=== PATIENT | female | born 1995 | race Caucasian/White ===

== ENCOUNTER → 2017-08-08 | Outpatient (CLI) | payer BC ==
[~2017-08-08] MED LIST: PRENTAB26 PO
== END | disposition home or self-care (01) ==
LOC: C.LABMFLN 14:44
PROVIDERS: ATTEND Obstetrics & Gynecology
DX: Z32.01 Encounter for pregnancy test, result positive (principal)

== ENCOUNTER → 2017-09-19 | Outpatient (CLI) | payer BC ==
[~2017-09-19] MED LIST changes: +METR500T PO
[2017-09-19 15:58] LABS: URINE APPEARANCE TURBID (CLEAR); URINE BILIRUBIN NEG (NEG); URINE COLOR YELLOW; URINE EPITHELIAL CELL AUTO >30 /lpf (0-5); URINE NITRITE NEG (NEG); UROBILINOGEN NEG (NEG)
[2017-09-19 16:10] LABS: MANUAL MICROSCOPIC REQUIRED? NO; REVIEW REQ? YES
== END | disposition home or self-care (01) ==
LOC: C.LABSPEC 15:32
PROVIDERS: ATTEND Obstetrics & Gynecology
DX: Z34.91 Encounter for supervision of normal pregnancy, unspecified, first trimester (principal)

== ENCOUNTER 2019-06-02 02:22 | Inpatient (IN) ==
[2019-06-02] MEDS ORDERED: OXYTOCIN 30 UNITS/500 ML BAG IV PRN ×3 (02:58→15:25)
[2019-06-02 03:16] LABS: Hematocrit (blood only) 30.4 % (37-47); Mean Corpuscular Volume 85.2 fL (80-100); Platelet Count 273 K/uL (130-400); RDW Coefficient of Variation 13.3 % (11.5-14.5); Red Blood Count 3.57 M/uL (4.2-5.4)
[2019-06-02 03:35] LABS: Mean Corpuscular Hgb Conc 32.9 g/dL (32-36)
[2019-06-02] MEDS ORDERED: BUTORPHANOL TARTRATE 2 MG/ML VIAL IV PRN (04:30)
--- NOTE | 2019-06-02 06:42 | History & Physical Report ---
Date of Service June 02, 2019 Term multiple presents in labor with rupture of membranes she initially was shikha and progressed in 3-4 to 4 to 5 cm however she is now stopped shikha and I recommend Pitocin estimated weight 70 pounds Assessment & Plan (1) PROM (premature rupture of membranes): Admission Pitocin monitor closely History of Present Illness Primary Care Provider: Raul Traylor Allergies Allergy/AdvReac Type Severity Reaction Status Date / Time No Known Allergies Allergy Unverified 10/03/17 12:20 Home Medications Home Medications Medication Instructions Recorded Confirmed Type vit no.[id number] 1 tab PO DAILY 05/30/19 06/02/19 History [ Vitamin] Patient History Medical History (spontaneous vaginal delivery) 2016 Surgical History History of appendectomy Occured at 6 years old. Social History Preferred Language: Belgian Communication Ability: Effective Beliefs That Will Affect Care: None marital status: Single Current Living Situation: Family Current Living Situation Comment: Lives with FOB and son Other Information That Helps Us Care for You: No Feels Safe at Home: Yes Safety Concerns: Feels Safe At This Time Smoking Status: Never smoker Second Hand Exposure: No Hx Alcohol Use: No Hx Substance Use: No Physical Exam Constitutional: WD/WN, vitals as above Respiratory: normal respiratory effort, lungs clear to auscultation Cardiovascular: RRR, no murmur, no edema Genitourinary: Manual OB Exam: + cervical dilation 4 cm and + cervical effacement 80% Results & Data Vital Signs (Past 12 Hours) Vital Signs Temp Pulse Resp BP 06/02/19 05:59 37.1 C 06/02/19 04:16 79 113/56 L 06/02/19 04:15 36.8 C 06/02/19 02:34 37.1 C 75 20 116/67 06/02/19 02:33 75 116/67
[2019-06-02] MEDS: LACTATED RINGER'S 1,000 ML IV PRN ×3 (07:02→13:03)
[2019-06-02] MEDS ORDERED: BUPIVACAINE 0.25% 30 ML VIAL ONE (11:49)
[2019-06-02] MEDS ORDERED: fentaNYL 2MCG/ML ROPIV 1.25MG/ML 100 ML BAG EPI ONE (11:50)
[2019-06-02] MEDS ORDERED: ePHEDrine sulfate 50 MG/ML AMP ONE (11:50)
[2019-06-02] MEDS ORDERED: fentaNYL citrate 100 MCG/2 ML VIAL ONE (11:50)
--- NOTE | 2019-06-02 13:05 | Anesthesiology Consultation ---
Date of Service June 02, 2019 Assessment & Plan Chart Review Chart Review: Acceptable Risk for Labor Epidural Consults Requested none History Height/Weight Height: 5 ft 4 in Weight: 50.349 kg Allergies Allergy/AdvReac Type Severity Reaction Status Date / Time No Known Allergies Allergy Unverified 10/03/17 12:20 Medications Home Medications Medication Instructions Recorded Confirmed Last Taken vit no.[id number] 1 tab PO DAILY 05/30/19 06/02/19 06/01/19 [ Vitamin] Active Medications Generic Name Dose Route Start Last Admin Trade Name Freq PRN Reason Stop Dose Admin Lactated Ringer's 1,000 mls @ 125 mls/hr 06/02/19 02:58 06/02/19 13:04 Lr IV 06/04/19 02:57 125 mls/hr .Q8H PRN Infusion L&D Protocol Protocol Oxytocin 30 units in 500 mls @ 0 mls/hr 06/02/19 06:39 06/02/19 12:12 Pitocin IV 06/04/19 06:38 0 units/hr .Q0M PRN 0 mls/hr Labor Induction/Augmentation Titration Protocol 0 UNITS/HR Past Medical History Medical History (spontaneous vaginal delivery) 2015 Past Surgical History Surgical History History of appendectomy Occured at 6 years old. Social History Smoking Status: Never smoker Hx Alcohol Use: No Hx Substance Use: No substance use type: does not use Physical Exam Vital Signs Last Vital Signs Temp 36.9 C 06/02/19 10:56 Pulse 109 H 06/02/19 13:03 Resp 16 06/02/19 10:56 BP 110/57 L 06/02/19 13:03 Pulse Ox 100 06/02/19 13:01 Testing Laboratory Results 06/02/19 03:09
--- NOTE | 2019-06-02 13:06 | Labor Progress Brief Note ---
Date of Service June 02, 2019 Subjective comfortable after epidural Assessment & Plan (1) PROM (premature rupture of membranes): - tracing Cat II - pt comfortable - continue pitocin Physical Exam Genitourinary: OB Exam Monitor Tracing: + category II and + normal FHT variability Cervix: 6/100/0 Results & Data Vital Signs (Past 12 Hours) Vital Signs Temp Pulse Resp BP Pulse Ox 06/02/19 13:03 109 H 110/57 L 06/02/19 13:01 94 H 102/55 L 100 06/02/19 12:59 93 H 103/55 L 06/02/19 12:57 88 103/59 L 06/02/19 12:56 89 100 06/02/19 12:55 100 H 101/58 L 06/02/19 12:53 95 H 107/56 L 06/02/19 12:51 94 H 109/53 L 100 06/02/19 12:49 104 H 130/61 06/02/19 12:47 102 H 114/60 06/02/19 12:46 100 H 100 06/02/19 12:45 102 H 92 06/02/19 12:41 89 100 06/02/19 12:36 80 100 06/02/19 12:31 83 100 06/02/19 12:26 92 H 99 06/02/19 12:21 85 100 06/02/19 12:16 84 100 06/02/19 12:11 88 100 06/02/19 12:06 93 H 100 06/02/19 12:02 79 119/60 06/02/19 12:01 84 100 06/02/19 10:56 36.9 C 80 16 105/66 06/02/19 10:04 37 C 16 06/02/19 10:03 37 C 81 16 117/58 L 06/02/19 09:00 37.1 C 16 06/02/19 08:03 87 109/55 L 06/02/19 08:02 36.4 C L 16 06/02/19 07:01 86 108/67 06/02/19 07:00 36.9 C 16 06/02/19 05:59 37.1 C 20 06/02/19 04:16 79 113/56 L 06/02/19 04:15 36.8 C 20 06/02/19 02:34 37.1 C 75 20 116/67 07/08/19 02:33 75 116/67
[2019-06-02] MEDS ORDERED: NALOXONE HCL 1 MG in SODIUM CHLORIDE 0.9% 1000ML 1,000 ML IV PRN (13:07)
[2019-06-02] MEDS ORDERED: DiphenhydrAMINE HCL 50 MG/ML VIAL IV PRN (13:07)
[2019-06-02] MEDS ORDERED: NALBUPHINE HCL INJ 10 MG/ML AMP IV PRN (13:07)
[2019-06-02] MEDS ORDERED: fentaNYL 2MCG/ML ROPIV 1.25MG/ML 100 ML BAG EPI PRN (13:07)
[2019-06-02] MEDS ORDERED: ePHEDrine sulfate 50 MG/ML AMP IV PRN (13:07)
[2019-06-02] MEDS ORDERED: NALOXONE HCL 0.4 MG/1 ML VIAL/CARP IV PRN (13:07)
[2019-06-02] MEDS ORDERED: DIPHTHERIA/TETANUS/PERTUSSIS 0.5 ML SYR/VIAL IM ONE (15:25)
[2019-06-02] MEDS ORDERED: HYDROCORTISONE ACETATE 25 MG SUPP PR PRN (15:25)
[2019-06-02] MEDS ORDERED: ACETAMINOPHEN W/CODEINE #3 1 TAB PO PRN (15:25)
[2019-06-02] MEDS ORDERED: ACETAMINOPHEN 325 MG TAB PO PRN (15:25)
[2019-06-02] MEDS ORDERED: BENZOCAINE 20% AER SPR 82.5 GM CAN EXT PRN (15:25)
[2019-06-02] MEDS ORDERED: SUPERCREAM 0.870% 15 GM JAR EXT PRN (15:25)
--- NOTE | 2019-06-02 15:36 | Anesthesia Procedure Note ---
Date of Service June 02, 2019 Anesthesia Post Epidural Note Vital Signs Vital Signs: Temp Pulse Resp BP Pulse Ox 37 C 85 20 108/57 L 100 06/02/19 15:15 06/02/19 15:31 06/02/19 15:15 06/02/19 15:31 06/02/19 15:12 Notes Mental Status: alert / awake / arousable Nausea / Vomiting: adequately controlled Pain: adequately controlled Airway Patency, RR, SpO2: stable & adequate BP & HR: stable & adequate Hydration State: stable & adequate Neuraxial Anesthesia: was administered and sensory block is resolving Anesthetic Complications: no major complications apparent and Pt Satisfied with anesthetic care Epidural: Removed without complications and With tip intact
[2019-06-02] MEDS ORDERED: DOCUSATE SODIUM 100 MG CAP ONE (19:58)
[2019-06-02] MEDS: IBUPROFEN 600 MG TAB PO PRN (19:59)
[2019-06-02] MEDS: DOCUSATE SODIUM 100 MG CAP PO SCH (20:00)
--- NOTE | 2019-06-03 00:23 | Delivery Summary ---
DATE OF OPERATION: 06/02/2019 FINDINGS: Viable female of 8 and 9. Baby delivered over a midline second-degree laceration. Cord blood samples obtained. Placenta delivered spontaneously. Laceration repaired with 4-0 Vicryl. Estimated blood loss 300 mL. LABOR NOTE: The patient is a 23-year-old 2, para 1 with an EDC of 06/01/2019 at 40+ weeks gestational age who presented to labor and delivery with spontaneous rupture of membranes with no contractions. The patient had a benign course. Blood type O positive, antibody negative, rubella immune, hepatitis B negative. She had a negative cell-free DNA screening. She had an elevated 1-hour Glucola at 16 weeks and a normal 2-hour glucose tolerance test at 28 weeks. She had negative third trimester beta strep culture. Upon admission, the patient was 3 cm dilated, heart rate tracing was reassuring. The patient was started on Pitocin per protocol by covering physician. Delivering physician assumed care of the patient at this point. Pitocin was increased per induction protocol. Tracing was a category 2. Patient became uncomfortable. Anesthesia was consulted and epidural was placed. The patient progressed to full dilatation, began her second stage. She pushed for approximately 10 minutes delivering a viable female infant. Cord was clamped and cut. Cord blood samples obtained. Placenta was delivered spontaneously. Inspection of the perineum showed a midline second-degree laceration which was repaired with 4-0 Vicryl in routine fashion. Estimated blood loss was 300 mL. Sponge and needle count was correct. I attest to the content of the Intraoperative Record and any orders documented therein. Any exception s are noted below.
[2019-06-03] MEDS: IBUPROFEN 600 MG TAB PO PRN ×3 (04:06→14:23)
--- NOTE | 2019-06-03 07:04 | Obstetrical Progress Note ---
Date of Service June 03, 2019 Assessment & Plan (1) PROM (premature rupture of membranes): - doing well - desires d/c - instructions given - f/u in 6 weeks for pp check Subjective Ambulation: ambulating normally Voiding: no voiding problems Diet Tolerance:: regular diet Feeding Type:: breast feeding Physical Exam Constitutional WD/WN, vitals as above Gastrointestinal (Abdomen) Fundus firm below umbilicus Musculoskeletal No deep calf tenderness Results & Data Vital Signs (Past 12 Hours) Vital Signs Temp Pulse Resp BP Pulse Ox 06/03/19 04:05 36.8 C 71 16 100/65 100 06/02/19 23:00 36.9 C 73 16 102/66 98 06/02/19 19:55 37.1 C 72 16 107/67 97
[2019-06-03] MEDS: PRENATAL VITAMIN 1 TAB PO SCH (08:16)
[2019-06-03] MEDS: DOCUSATE SODIUM 100 MG CAP PO SCH ×2 (08:17→20:26)
[2019-06-03] MEDS ORDERED: BISACODYL 5 MG TABEC PO SCH (20:00)
[2019-06-04 07:00] LABS: Hematocrit (blood only) 30.4 % (37-47); Hemoglobin 9.9 g/dL (12.0-16.0)
--- NOTE | 2019-06-04 07:00 | Obstetrical Progress Note ---
Date of Service June 04, 2019 Assessment & Plan (1) Vaginal delivery: PPD#2 doing well. Ready to go home. DC instructions discussed. Subjective Ambulation: ambulating normally Voiding: no voiding problems Diet Tolerance:: regular diet Lochia:: Moderate Feeding Type:: bottle feeding PPD#2 doing well. No concerns. Physical Exam Constitutional WD/WN, vitals as above no acute distress Respiratory normal respiratory effort Cardiovascular Rate/Rhythm: regular rate and regular rhythm Gastrointestinal (Abdomen) Inspection/Auscultation: abdomen normal to inspection; abdomen not distended Percussion/Palpation: abdomen soft Genitourinary OB Exam Abdomen: + fundal height Fundus: + firm; not tender Results & Data Vital Signs (Past 12 Hours) Vital Signs Temp Pulse Resp BP Pulse Ox 06/03/19 23:20 36.7 C 67 16 108/70 99
[2019-06-04] MEDS: PRENATAL VITAMIN 1 TAB PO SCH (09:01)
[2019-06-04] MEDS: DOCUSATE SODIUM 100 MG CAP PO SCH (09:01)
== END 2019-06-04 10:15 | disposition home or self-care (01) | DRG 807 ==
LOC: OPB 02:22 → 4S1 02:26 → 4S2 17:25